=== PATIENT | female | born 1945 | race Caucasian/White ===

== ENCOUNTER 2016-07-21 10:17 | Outpatient (CLI) | payer MEDICARE ==
[~2016-07-21] VITALS: Ht 165.1 cm; Wt 60.9 kg
[~2016-07-21 10:17] MED LIST: FISH OIL 1,0001 CA1 PO; MULTIPLE VITAMI1 TA1 PO; OS-CAL 500+D TA1 TAB PO
[2016-07-21] MEDS ORDERED: MAGNESIUM (11:04)
[2016-07-21 11:09] VITALS: BP 106/69; Ht 165.1 cm; Wt 60.9 kg
--- NOTE | 2016-07-21 11:21 | NUR ---
1106 PROLIA INJECTION GIVEN RT LOWER ABDOMEN SUBCUTANEOUS GIVEN [id number] ON PROLIA INJECTION. ASSESSMENT COMPLETED AND V/S TAKEN.
--- NOTE | 2016-07-21 11:22 | NUR ---
1122 DISCHARGE INSTRUCTIONS GIVEN EXP 08/31 ON PROLIA AND LOT # [id number]
--- NOTE | 2016-07-21 11:23 | NUR ---
1123 PATIENT LEFT FACILITY.
== END 2016-07-21 11:23 | disposition home or self-care (01) ==
LOC: D.OPS 10:17
DX: M81.0 Age-related osteoporosis without current pathological fracture (principal)

== ENCOUNTER 2017-02-07 13:32 | Outpatient (CLI) | payer MEDICARE ==
[~2017-02-07 13:32] MED LIST changes: +MAGNESIUM
[2017-02-07 14:18] VITALS: BP 109/53; Ht 165.1 cm
== END 2017-02-07 14:10 | disposition home or self-care (01) ==
LOC: D.OPS 13:32
DX: M81.0 Age-related osteoporosis without current pathological fracture (principal)

== ENCOUNTER 2017-08-08 12:34 | Outpatient (CLI) | payer MEDICARE ==
[~2017-08-08] VITALS: Ht 165.1 cm; Wt 61.4 kg
[2017-08-08 13:08] VITALS: BP 101/57; Ht 165.1 cm; Wt 61.4 kg
== END 2017-08-08 13:15 | disposition home or self-care (01) ==
LOC: D.OPS 12:34
DX: M81.0 Age-related osteoporosis without current pathological fracture (principal)

== ENCOUNTER → 2018-02-21 11:57 | Outpatient (CLI) | payer MEDICARE ==
[~2018-02-21] VITALS: Ht 165.1 cm; Wt 61.4 kg
[2018-02-21 12:27] VITALS: BP 97/39; Ht 165.1 cm; Wt 61.4 kg
== END | disposition home or self-care (01) ==
LOC: D.OPS 02-15 13:00
DX: M81.0 Age-related osteoporosis without current pathological fracture (principal); Z01.812 Encounter for preprocedural laboratory examination

== ENCOUNTER → 2018-11-27 12:48 | Outpatient (CLI) | payer MEDICARE ==
[~2018-11-27] VITALS: Ht 165.1 cm; Wt 59.1 kg
[2018-11-27 13:04] VITALS: BP 100/54; Ht 165.1 cm; Wt 59.1 kg
== END | disposition home or self-care (01) ==
LOC: D.OPS 12:48
PROVIDERS: ATTEND Family Medicine
DX: M81.0 Age-related osteoporosis without current pathological fracture (principal)

== ENCOUNTER 2019-06-04 12:10 | Outpatient (CLI) | payer MEDICARE ==
[~2019-06-04] VITALS: Ht 165.1 cm; Wt 60.0 kg
[2019-06-04 12:39] VITALS: Ht 165.1 cm; Wt 60.0 kg
--- NOTE | 2019-06-04 12:49 | NUR ---
PT LEFT UNIT AMBULATING AT 1248. DC INSTRUCTIONS GIVEN. STATES UNDERSTANDING.
== END 2019-06-04 12:48 | disposition home or self-care (01) ==
LOC: D.OPS 12:10
PROVIDERS: ATTEND Family Medicine
DX: M81.0 Age-related osteoporosis without current pathological fracture (principal)